=== PATIENT | male | born 1960 ===

== ENCOUNTER 2024-02-01 21:37 | Emergency (ER) | payer BC ==
[2024-02-01] MEDS: Lidocaine 1% 5 ML VIAL INJECT ONE (21:49)
[2024-02-01] MEDS: Diphtheria,Pertussis(Acell),Tetanus Vaccine 0.5 ML Syringe IM ONE (22:05)
== END 2024-02-01 22:18 | disposition home or self-care (01) ==
LOC: LB.ED 21:37
DX: S61.042A Puncture wound with foreign body of left thumb without damage to nail, initial encounter (principal); Z88.1 Allergy status to other antibiotic agents; Z23 Encounter for immunization; W45.8XXA Other foreign body or object entering through skin, initial encounter
CPT/HCPCS: 10120; 90471; 90715; 99283; 99283-25